=== PATIENT | male | born 1970 | race Two or more races ===

== ENCOUNTER 2022-09-24 05:23 | Day surgery (SDC) | payer OTHER, BC ==
[2022-09-17 16:34] LABS: BASOPHILS % (AUTO) 0.5 % (0-1); EOSINOPHILS # (AUTO) 0.2 X10'3 (0-0.9); EOSINOPHILS % (AUTO) 2.7 % (0-6); LYMPHOCYTES # (AUTO) 1.6 X10'3 (1.1-4.8); MEAN CORPUSCULAR HEMOGLOBIN 30.3 PG (27.0-31.0); MEAN CORPUSCULAR HGB CONC 34.8 g/dL (33.0-36.5); MEAN CORPUSCULAR VOLUME 87.1 FL (78-98); MEAN PLATELET VOLUME 9.3 FL (7.4-10.4); MONOCYTES # (AUTO) 0.5 X10'3 (0-0.9); MONOCYTES % (AUTO) 7.7 % (2-12); NEUTROPHILS # (AUTO) 4.2 X10'3 (1.8-7.7); NEUTROPHILS % (AUTO) 64.1 % (42-75); PRE OP HEMATOCRIT 48.6 % (42.0-52.0); PRE OP HEMOGLOBIN 16.9 g/dL (14.0-17.9); PRE OP PLATELET COUNT 173 X10'3 (140-440); RED BLOOD COUNT 5.58 X10'6 (4.70-6.10); RED CELL DISTRIBUTION WIDTH 13.4 % (11.5-14.5)
[2022-09-17 16:53] LABS: ALBUMIN 3.9 G/DL (3.4-5.0); ALBUMIN/GLOBULIN RATIO 1.3 (1.1-1.5); ALKALINE PHOSPHATASE 91 IU/L (46-116); BLOOD UREA NITROGEN 20 MG/DL (7-18); BUN/CREATININE RATIO 18.5 (10.0-20.0); CALCIUM 8.8 MG/DL (8.5-10.1); CREATININE 1.08 MG/DL (0.60-1.10); PRE OP ALT 19 U/L (30-65); PRE OP AST 15 U/L (10-37); PRE OP GLUCOSE 123 MG/DL (70-104); eGFR 72 ML/MIN
[2022-09-17 17:04] LABS: CHLORIDE 107 MMOL/L (99-107); PRE OP ANION GAP 8 (8-16); PRE OP POTASSIUM 3.8 MMOL/L (3.4-5.1); PRE OP SODIUM 140 MMOL/L (135-145)
[2022-09-24] VITALS (23 sets, daily range): BP systolic 105–155; BP diastolic 62–93
[~2022-09-24] VITALS: Ht 175.3 cm; Wt 111.4 kg
[~2022-09-24 05:23] MED LIST: NAPR220C62 PO
[2022-09-24] MEDS ORDERED: metoclopramide 5 mg/ml inj IV ONE (05:30)
[2022-09-24] MEDS ORDERED: tranexamic acid inj. 1,000 MG in normal saline IV soln 100ML IV ONE (05:30)
[2022-09-24] MEDS ORDERED: celeCOXIB 100mg capsule PO ONE (05:30)
[2022-09-24] MEDS ORDERED: famotidine 20mg tablet PO ONE (05:30)
[2022-09-24] MEDS ORDERED: oxyCODONE SR 10mg (sust. release) tab -2 tabs (20mg) PO ONE (05:30)
[2022-09-24] MEDS ORDERED: cefazolin 2gm/D5W 100mL 100 ML IV ONE (05:30)
[2022-09-24] MEDS ORDERED: gabapentin 300mg capsule PO ONE (05:30)
[2022-09-24] MEDS ORDERED: vancomycin 1,500 MG in NS 300ml IV soln IV ONE (05:30)
[2022-09-24] MEDS ORDERED: acetaminophen 325mg tablet PO ONE (05:30)
[2022-09-24] MEDS ORDERED: LIDOcaine 1% (10mg/ml) 2ml vial ONE (05:54)
[2022-09-24] MEDS: ringers solution, lacted 1,000 ML IV SCH ×2 (05:59→16:52)
[2022-09-24] MEDS ORDERED: naloxone 0.4 mg/ml inj IV PRN (06:45)
[2022-09-24] MEDS ORDERED: acetaminophen 325mg tablet PO PRN (06:45)
[2022-09-24] MEDS ORDERED: HYDROmorphone inj. 0.5 MG/0.5 ML DISP.SYRIN IV PRN (06:45)
[2022-09-24] MEDS ORDERED: HYDROmorphone 1 mg/ml syringe IV PRN (06:45)
[2022-09-24] MEDS ORDERED: diphenhydrAMINE 25mg capsule PO PRN ×2 (06:45)
[2022-09-24] MEDS ORDERED: magnesium hydroxide 30ml (MOM) UD suspension PO PRN (06:45)
[2022-09-24] MEDS ORDERED: bisacodyl 10mg suppository rectal RC PRN (06:45)
[2022-09-24] MEDS ORDERED: ondansetron/PF 4mg/2ml inj IV PRN ×2 (06:45→09:35)
[2022-09-24] MEDS ORDERED: cloNIDine hcl/PF 100mcg/ml inj ONE (06:49)
[2022-09-24] MEDS ORDERED: epiNEPHrine 1 mg/ml inj ONE (06:49)
[2022-09-24] MEDS ORDERED: ROPIVAcaine 0.5% (5mg/ml) 30ml vial ONE ×2 (06:49→09:55)
[2022-09-24] MEDS ORDERED: vancomycin 1,000mg inj ONE (06:50)
--- NOTE | 2022-09-24 07:30 | NUR ---
STRONG PALPABLE PEDAL PULSE TO RIGHT FOOT MAKRED W/ SKIN MARKER. PT HAS GOOD CSM BILAT FEET. PT ALSO STATES HE SHOWERED X 5 PER TOTAL JOINT PROTOCOL, READ HIS TOTAL JOINT BOOKLET AND WATCHED NUMEROUS VIDEOS. PT STATES UNDERSTANDING AND READINESS FOR TOTAL KNEE.
[2022-09-24] MEDS ORDERED: MIDAZolam 1mg/ml 10ml vial ONE (08:20)
[2022-09-24] MEDS ORDERED: fentaNYL/PF 50MCG/1 ML 2ML syringe ONE (08:20)
[2022-09-24] MEDS ORDERED: ketorolac trometh. 30mg/ml inj. ONE (09:11)
[2022-09-24] MEDS ORDERED: morphine 2 MG/ML inj. syringe IV PRN (09:35)
[2022-09-24] MEDS ORDERED: morphine 4 MG/ML inj SYRINge IV PRN (09:35)
[2022-09-24] MEDS ORDERED: proCHLORperazine 10 MG/2 ml inj IV PRN (09:35)
[2022-09-24] MEDS ORDERED: ringers solution, lacted 1,000 ML IV SCH (09:35)
[2022-09-24] MEDS ORDERED: ROPIVAcaine 0.2% (10 MG/5 ML) BOLUS INJECTION ADDCANAL PRN (09:35)
[2022-09-24] MEDS ORDERED: meperidine/PF 25mg/ml syringe IV PRN ×3 (09:35)
[2022-09-24] MEDS ORDERED: propofol inj 20 ML IV ONE (09:55)
--- NOTE | 2022-09-24 10:31 | NUR ---
Received from OR via BED, accompanied by Anesthesiologist DR Murdock report given by Anesthesiologist. PT DROWSY, NO S/S OF DISTRESS/DISCOMFORT. RIGHT KNEE W/SURAJ DRAIN/DRSG W/GREEN LIGHT ILLUMINATION. LEG WRAP, POWDER PACK IN PLACE. PT DEMATOME LEVEL L-1, L-2. Addendum: 09/24/22 at 1138 by Makenzie White RN Amended: Links added.
[2022-09-24] MEDS: ROPIVAcaine 0.2%/PF PUMP/bolus 545 ML ADDCANAL SCH (11:47)
--- NOTE | 2022-09-24 11:55 | NUR ---
Patient in room . I have received report from Makenzie MILLIGAN and had the opportunity to ask questions and assume patient care. Addendum: 09/24/22 at 1237 by Ana Luisa Zafar LVN Patient arrived to floor at 1220 via hospital bed assisted by button sawyer's accompanied by . Orientation provided to new environment and call light system. Patient is AOx4 able to make needs known. Assessment performed and VS obtained. Ricky dressing noted to right knee, CDI with green light. OnQ noted at 8. Cool pack in place. All needs met at this time
[2022-09-24] MEDS: HYDROcodone/acetaminophen 10/325mg tab PO PRN ×3 (12:05→23:25)
--- NOTE | 2022-09-24 12:21 | NUR ---
Report called to receiving nurse. Transferred via BED, 1 BAG OF Belongings SENT W/PT TO ROOM 356A, SIDE RAILS UP X 2, BLL, CALL LIGHT GIVEN, PTS AND RECEIVING RN AT BEDSIDE. PT STATES PAIN IS IMPROVING. Special Issues communicated to receiving nurse. YES. Addendum: 09/24/22 at 1245 by Makenzie White RN Amended: Links added.
[2022-09-24] MEDS ORDERED: tranexamic acid inj. 1,100 MG in normal saline 100ml IV soln 89 ML IV ONE (13:00)
[2022-09-24] MEDS: potassium cl 20mEq in 1/2 NS 1,000 ML IV SCH ×3 (14:45→22:45)
--- NOTE | 2022-09-24 18:47 | NUR ---
Problems reprioritized. Patient report given, questions answered & plan of care reviewed with Keri MILLIGAN.
[2022-09-24] MEDS ORDERED: VANCOMYCIN 1,500MG inj. 1,500 MG in normal saline 500ml IV soln 300 ML IV ONE (20:00)
[2022-09-24] MEDS: gabapentin 300mg capsule PO SCH (20:46)
[2022-09-24] MEDS: ascorbic acid 500mg tablet PO SCH (20:47)
[2022-09-24] MEDS ORDERED: sennosides 8.6mg tablet PO SCH (21:00)
[2022-09-25 02:00] VITALS: BP 151/83
[2022-09-25] MEDS: HYDROcodone/acetaminophen 10/325mg tab PO PRN ×3 (04:54→13:21)
--- NOTE | 2022-09-25 06:31 | NUR ---
Patient in room [facility] 356. I have received report from Keri MILLIGAN and had the opportunity to ask questions and assume patient care.
--- NOTE | 2022-09-25 06:31 | NUR ---
Problems reprioritized. Patient report given, questions answered & plan of care reviewed with SILVIO CAMPOS.
[2022-09-25] MEDS: potassium cl 20mEq in 1/2 NS 1,000 ML IV SCH (06:45)
[2022-09-25 06:53] VITALS: BP 146/74
[2022-09-25 07:11] LABS: BASOPHILS % (AUTO) 0.3 % (0-1); EOSINOPHILS # (AUTO) 0.1 X10'3 (0-0.9); EOSINOPHILS % (AUTO) 1.6 % (0-6); HEMATOCRIT 42.6 % (42.0-52.0); HEMOGLOBIN 14.8 g/dl (14.0-17.9); LYMPHOCYTES # (AUTO) 0.8 X10'3 (1.1-4.8); MEAN CORPUSCULAR HEMOGLOBIN 30.4 PG (27.0-31.0); MEAN CORPUSCULAR HGB CONC 34.8 g/dL (33.0-36.5); MEAN CORPUSCULAR VOLUME 87.4 FL (78-98); MEAN PLATELET VOLUME 9.6 FL (7.4-10.4); MONOCYTES # (AUTO) 0.6 X10'3 (0-0.9); NEUTROPHILS # (AUTO) 5.8 X10'3 (1.8-7.7); NEUTROPHILS % (AUTO) 79.1 % (42-75); PLATELET COUNT 128 X10'3 (140-440); RED BLOOD COUNT 4.88 X10'6 (4.70-6.10); RED CELL DISTRIBUTION WIDTH 13.3 % (11.5-14.5); WHITE BLOOD COUNT 7.3 X10'3 (4.5-11.0)
[2022-09-25] MEDS: gabapentin 300mg capsule PO SCH ×2 (07:26→13:22)
[2022-09-25] MEDS: ascorbic acid 500mg tablet PO SCH (07:28)
[2022-09-25 07:36] LABS: ANION GAP 7 (8-16); CHLORIDE 109 MMOL/L (99-107); POTASSIUM 3.8 MMOL/L (3.5-5.1); SODIUM 140 MMOL/L (135-145)
[2022-09-25] MEDS ORDERED: multivitamins, therapeutics tablet PO SCH (08:00)
[2022-09-25] MEDS ORDERED: aspirin 325mg tablet PO SCH (08:30)
[2022-09-25 10:57] VITALS: BP 180/110
--- NOTE | 2022-09-25 10:57 | NUR ---
Notified Dr. Belle of BP 180/110 HR 85. Received telephone order for 10mg hydralazine IV once for hypertension. Also notified that patient reports that his primary did prescribe him a BP medication but him or his could not recall the name or dosage. He states that he does not take it and he checks his BP once a week. Patient reports that sometimes his BP will be really high and other times it is low. At this time patient denies dizziness, blurred vision, vision changes/loss, headache, chest pain, and SOB. No s/sx of distress noted. Charge nurse notified for administration of IV medication Addendum: 09/25/22 at 1215 by Ana Luisa Zafar LVN Dr. Belle instructed that after decrease of BP, patient is cleared to discharge home as he was recently cleared by PT. Patient was instructed to follow up with PCP related to BP medication and hospital stay. Encouraged patient to check BP at least once a day, education re risk of heart attack and stroke- patient and his both stated understanding and are able to identify symptoms of hypertension. BP noted 158/85, patient reports pain at a tolerable level and continues to deny symptoms of hypertension. Charge nurse notified and ordered to continue with discharge per MD instruction. Addendum: 09/25/22 at 1215 by Ana Luisa OCONNORN VSS, no s/sx of distress noted at this time
[2022-09-25] MEDS ORDERED: hydrALAZINE 20mg/ml inj. IV ONE (11:05)
[2022-09-25 12:00] VITALS: BP 158/85
[2022-09-25 13:30] VITALS: BP 162/102
--- NOTE | 2022-09-25 13:30 | NUR ---
I have reviewed and agree with interventions, assessments, and documentation by Ana Luisa Bermudez LVN.
--- NOTE | 2022-09-25 13:30 | NUR ---
BP taken prior to discharge, noted 162/102. Dr. Chris Belle notified, received verbal order to discharge patient and provide education re hypertension symptoms- re risk for heart attack and stroke emphasized. Education provided re symptoms: headache, vision changes/loss, dizziness, palpitations, chest pain, and SOB. Patient and his verbalized understanding. Discharge paperwork reviewed. Patient was encouraged to follow up with PCP and take BP daily along with BP medication as prescribed, patient states understanding. Patient was instructed that he can take pain medication in 4 hours and to take medication as prescribed by Dr. Belle. Education provided re limitations, aftercare, OnQ usage and removal, and instruction for edith dressing. All questions anticipated and addressed. PIV removed, cannula intact, patient tolerated well. Patient assisted out of facility via auxillary staff in w/c accompanied by his . Crutches and belongings sent home with patient. Addendum: 09/25/22 at 1409 by Ana Luisa Zafar LVN Crutches left in room, call placed to patient who reports that they "forgot we already have some at home."
[2022-09-25] MEDS: ROPIVAcaine 0.2%/PF PUMP/bolus 545 ML ADDCANAL SCH (13:53)
--- NOTE | 2022-09-25 15:28 | NUR ---
Joint surgery consult: Pt s/p R knee surgery this admit per EMR. Pt discharged prior to RD visit. Written high protein diet ed w/ RD contact information mailed to pt home address provided in EMR. Addendum: 09/25/22 at [address] Amended: Links added.
[2022-09-25] MEDS ORDERED: celeCOXIB 100mg capsule PO SCH (20:00)
== END 2022-09-25 14:30 | disposition home or self-care (01) ==
LOC: PAS 05:23 → SUR 3N 13:55 → PAS 09-25 14:30
PROVIDERS: ATTEND Orthopaedic Surgery
DX: M17.11 Unilateral primary osteoarthritis, right knee (principal); D62 Acute posthemorrhagic anemia; M21.161 Varus deformity, not elsewhere classified, right knee; Z79.01 Long term (current) use of anticoagulants; Z79.899 Other long term (current) drug therapy; G89.18 Other acute postprocedural pain; Z98.890 Other specified postprocedural states
CPT/HCPCS: 27447; 36415; 64447; 73560; 80051; 80053; 82948; 85025; 93005; 97116; 97161; 97530; C1713; C1776; J0171; J0360; J0690; J0735; J1170; J1885; J2175; J2250; J2405; J2704; J2765; J2795; J3010; J3370; J3480; J3490; J7030; J7040; J7060; J7120; Z7506; Z7508; Z7512; A4215; A7000; G0378

== ENCOUNTER 2023-01-30 16:48 | Emergency (ER) | payer OTHER, BC ==
[~2023-01-30] VITALS: Ht 175.3 cm; Wt 113.6 kg
[2023-01-30 16:58] VITALS: TEMP 98.2
[2023-01-30 17:18] LABS: BASOPHILS % (AUTO) 0.1 % (0-1); EOSINOPHILS % (AUTO) 0.3 % (0-6); HEMATOCRIT 50.2 % (42.0-52.0); HEMOGLOBIN 17.4 g/dl (14.0-17.9); LYMPHOCYTES # (AUTO) 0.8 X10'3 (1.1-4.8); LYMPHOCYTES % (AUTO) 8.9 % (21-51); MEAN CORPUSCULAR HEMOGLOBIN 29.6 PG (27.0-31.0); MEAN CORPUSCULAR HGB CONC 34.7 g/dL (33.0-36.5); MEAN CORPUSCULAR VOLUME 85.2 FL (78-98); MEAN PLATELET VOLUME 9.3 FL (7.4-10.4); MONOCYTES # (AUTO) 0.1 X10'3 (0-0.9); MONOCYTES % (AUTO) 1.3 % (2-12); NEUTROPHILS % (AUTO) 89.4 % (42-75); PLATELET COUNT 189 X10'3 (140-440); RED CELL DISTRIBUTION WIDTH 14.9 % (11.5-14.5)
--- NOTE | 2023-01-30 17:20 | NUR ---
Radiologist called and stated the CT head was normal.
[2023-01-30 17:25] LABS: APTT 28 SECONDS (22-32)
[2023-01-30 17:30] LABS: ALANINE AMINOTRANSFERASE 27 U/L (12-78); ALBUMIN/GLOBULIN RATIO 1.1 (1.1-1.5); ALKALINE PHOSPHATASE 81 IU/L (46-116); ANION GAP 10 (8-16); ASPARTATE AMINO TRANSFERASE 18 U/L (10-37); BLOOD UREA NITROGEN 19 MG/DL (7-18); BUN/CREATININE RATIO 18.3 (10.0-20.0); CALCIUM 9.3 MG/DL (8.5-10.1); CHLORIDE 106 MMOL/L (99-107); CREATININE 1.04 MG/DL (0.60-1.10); GLUCOSE 130 MG/DL (70-104); POTASSIUM 4.2 MMOL/L (3.5-5.1); SODIUM 138 MMOL/L (135-145); TOTAL CARBON DIOXIDE 22.1 MMOL/L (24-32); TOTAL PROTEIN 7.6 G/DL (6.4-8.2); eGFR 75 ML/MIN
--- NOTE | 2023-01-30 18:24 | NUR ---
accumed care from dave peña Addendum: 01/30/23 at 1832 by JAK by perlita apple
[2023-01-30] MEDS ORDERED: PRED20TA PO (18:25)
[2023-01-30] MEDS ORDERED: VALA500T41 PO (18:25)
[2023-01-30 18:26] VITALS: BP 135/88; PULSE 80; RESP 17; O2SAT 95
--- NOTE | 2023-01-30 18:37 | NUR ---
assumed care from dave peña.
[2023-01-30] MEDS ORDERED: VALA100031 PO (18:57)
== END 2023-01-30 19:49 | disposition home or self-care (01) ==
LOC: ER 16:49
DX: R42 Dizziness and giddiness (principal)
CPT/HCPCS: 36415; 70450; 71045; 80053; 82948; 83880; 84484; 85025; 85610; 85730; 93005; 99285